=== PATIENT | female | born 1995 | race Caucasian/White ===

== ENCOUNTER 2020-11-26 13:43 | Outpatient (CLI) | payer OTHER, SELFPAY ==
--- NOTE | ~2020-11-26 | US_ITS ---
EXAMINATION: US OB <= 14 weeks fetus EXAM DATE: 11/26/2020 14:23 INDICATION: Routine care, for dating. 1st trimester. TECHNIQUE: Pelvic obstetrical transabdominal sonogram was performed by a technologist. There are mu ltiple grayscale and Doppler images available for interpretation. There are no earlier studies of th is gestation for comparison. FINDINGS: Uterus measures 12.1 x 6.3 x 7.3 cm. There is intrauterine gestation sac. pole with heart rate confirmed at 176 beats per minute. The 2.6 cm crown-rump length corresponds to estimated gestational age by ultrasound of 9 weeks 3 days, estimated date of confinement 06/28/2021. Yolk sac i s identified. There is no sonographic evidence of subchorionic hemorrhage. There is complex cystic left adnexal mass, predominantly cystic but with some regions of wall thicken ing suspected, and some internal septa. This measures 9.4 x 6.7 x 7.5 cm. Differential diagnosis incl udes cystadenoma, cystadenocarcinoma, hemorrhagic cyst, endometrioma. The right ovary is not identifi ed. IMPRESSION: 1. Early live intrauterine gestation age by ultrasound 9 weeks 3 days. 2. Complex cystic left ovarian mass, differential diagnosis includes benign or malignant neoplasm. Reviewed, dictated and finalized at location A.
== END 2020-11-26 13:44 | disposition home or self-care (01) ==
PROVIDERS: PCP Obstetrics & Gynecology; Visit Provider Obstetrics & Gynecology
DX: Z34.91 Encounter for supervision of normal pregnancy, unspecified, first trimester (principal); Z3A.09 9 weeks gestation of pregnancy
CPT/HCPCS: 76801